=== PATIENT | female | born 1985 | race Caucasian/White ===

== ENCOUNTER 2017-12-13 18:12 | Emergency (ER) | payer MEDICAID ==
[2017-12-13 18:18] VITALS: BMI 27.7
[2017-12-13 18:23] VITALS: TEMP 97.8
[2017-12-13 19:29] LABS: BASO % 0.6 % (0.0-2.0); EOS # 0.2 K/uL (0.0-0.7); EOS % 3.9 % (0.0-4.0); HEMOGLOBIN 13.1 g/dL (11.0-16.0); LYMPH # 2.7 K/uL (1.0-4.3); MEAN CELL VOLUME 76.2 fL (81.0-99.0); MEAN CORPUSCULAR HEMOGLOBIN 24.8 pg (27.0-31.0); MEAN CORPUSCULAR HGB CONC 32.6 g/dL (33.0-37.0); MEAN PLATELET VOLUME 8.5 fL (7.2-11.7); MONO # 0.4 K/uL (0.0-0.8); MONO % 7.3 % (0.0-10.0); NEUT # 2.6 K/uL (1.8-7.0); NEUT % 43.2 % (50.0-75.0); NRBC % 0.1 % (0.0-2.0); RBC 5.28 Mil/uL (3.80-5.20); RED CELL DISTRIBUTION WIDTH 14.7 % (11.5-14.5)
[2017-12-13 19:33] LABS: SQUAMOUS EPITHIAL 4 /hpf (0-5); URINE BILIRUBIN NEGATIVE (NEGATIVE); URINE BLOOD NEGATIVE (NEGATIVE); URINE CLARITY Clear (Clear); URINE COLOR Straw (YELLOW); URINE GLUCOSE (UA) NORMAL (Normal); URINE LEUKOCYTE ESTERASE NEG Leu/uL (Negative); URINE PROTEIN NEGATIVE (NEGATIVE); URINE UROBILINOGEN NORMAL mg/dL (0.2-1.0)
[2017-12-13 19:37] LABS: INR 1.1
[2017-12-13 19:47] LABS: ALB/GLOB RATIO 1.2 (1.0-2.1); ALBUMIN 4.7 g/dL (3.5-5.0); ALT/SGPT 23 U/L (9-52); AST/SGOT 22 U/L (14-36); BLOOD UREA NITROGEN 14 mg/dL (7-17); CALCIUM 9.6 mg/dl (8.6-10.4); GFR NON-AFRICAN AMERICAN > 60
--- NOTE | 2017-12-13 20:36 | C.PDOC ---
History Of Present Illness 32 y/o F p/w chest pain x 1 month. Pain is L sided, sharp, constant, radiating to L upper back, worse with palpation. Patient went to [facility] who referred her to cardiology but she has been unable to get an appointment yet. She denies fever, chills, nausea, vomiting, leg swelling, recent travel or surgery. She has had intermittent coughing in the morning sometimes with blood and she also has an IUD from [place] which family thinks but is not 100% sure is the not the kind that emits hormone. Patient notes that at times, she feels like it is difficult to get a full breath. Time Seen by Provider: 12/13/17 19:26 Chief Complaint (Nursing): Chest Pain Past Medical History Vital Signs: Last Vital Signs Temp 97.8 F 12/13/17 18:19 Pulse 71 12/13/17 18:19 Resp 20 12/13/17 18:19 BP 110/73 12/13/17 18:19 Pulse Ox 100 12/13/17 18:19 Surgical History: Tonsillectomy Family History: States: Unknown Family Hx - Social History Hx Tobacco Use: No Hx Alcohol Use: No Hx Substance Use: No - Immunization History Hx Tetanus Toxoid Vaccination: No Hx Influenza Vaccination: No Hx Pneumococcal Vaccination: No Review Of Systems Except As Marked, All Systems Reviewed And Found Negative. Constitutional: Negative for: Fever Gastrointestinal: Negative for: Vomiting Physical Exam - Physical Exam Additional Physical Exam Comments: Gen: NAD head: NC/AT Eyes: PERRL ENT: MMM Neck: Supple Chest: Reproducible chest tenderness CV: Regular rate Lungs:C TA b/l AbD; Soft, NT Back: No CVA tenderness Extremities: no edema Skin: No rash Neuro: Alert, no focal deficit ED Course And Treatment - Laboratory Results Result Diagrams: 12/13/17 19:25 12/13/17 19:25 O2 Sat by Pulse Oximetry: 100 Medical Decision Making Medical Decision Making: EKG NSR 70 bpm, no ST elevations, T wave inversions V2 to V3. CXR no acute disease. Troponin, dimer negative. Patient in no distress. Reproducible chest pain. Discharged home, keep appointment with cardiology, return to ED for worsening pain, fever, dypsnea, or any other problem. Disposition - Disposition Referrals: Corby Bianchi MD [Staff Provider] - Disposition: HOME/ ROUTINE Disposition Time: 21:11 Condition: STABLE Instructions: Costochondritis Forms: [employer] (Bulgarian) - Clinical Impression Clinical Impression: Chest pain
[2017-12-13 21:21] VITALS: RESP 16
[2017-12-13 22:09] VITALS: O2SAT 100
[2017-12-13 23:05] VITALS: BP 107/81; PULSE 70
--- NOTE | 2017-12-14 14:45 | RAD ---
Date of service: 12/13/2017 HISTORY: chest pain COMPARISON: Comparison chest 11/30/2013 TECHNIQUE: Chest PA and lateral FINDINGS: LUNGS: No active pulmonary disease. PLEURA: No significant pleural effusion identified. No pneumothorax apparent. CARDIOVASCULAR: Normal. OSSEOUS STRUCTURES: No significant abnormalities. VISUALIZED UPPER ABDOMEN: Normal. OTHER FINDINGS: None. IMPRESSION: No active disease.
--- NOTE | 2017-12-16 10:06 | CARD ---
APPROVED REPORT Date of service: 12/13/2017 EKG Measurement Heart [id number] <Conclusion> Sinus rhythm with marked sinus arrhythmia T wave abnormality, nonspecific Abnormal ECG
== END 2017-12-13 23:07 | disposition home or self-care (01) ==
LOC: C.ER 18:12
DX: R07.9 Chest pain, unspecified (principal)